=== PATIENT | male | born 1955 | race Caucasian/White ===

== ENCOUNTER 2018-01-31 08:04 | Observation (INO) | payer OTHER ==
[~2018-01-31] VITALS: Ht 180.3 cm; Wt 98.0 kg
[2018-01-31] VITALS (8 sets, daily range): BP systolic 107–179; BP diastolic 64–101; PULSE 58–68; RESP 17–18; TEMP 97.7–98.4; O2SAT 94–99
[~2018-01-31 08:04] MED LIST: OMEP20TA39 PO; PROZ20CA11 PO; SIMV20 PO
[2018-01-31] MEDS ORDERED: ASPIRIN 81 MG CHEW TAB PO ONE (08:30)
[2018-01-31] MEDS ORDERED: LIDOCAINE VISCOUS 2% SOLN 15 ML UDC PO ONE (08:30)
[2018-01-31] MEDS ORDERED: SODIUM CHLORIDE 0.9% FLUSH 10 ML FLUSH IVF PRN (08:30)
[2018-01-31] MEDS ORDERED: ALUMINUM/MAGNESIUM/SIMETH 30 ML CUP PO ONE (08:30)
[2018-01-31] MEDS ORDERED: FAMOTIDINE 20 MG/2 ML VIAL IV PUSH ONE (08:30)
[2018-01-31 08:49] LABS: AUTOMATED NEUTROPHIL # 3.4 TH/MM3 (1.8-7.7); BASOPHIL % 0.7 % (0.0-2.0); EOSINOPHIL # 0.1 TH/MM3 (0-0.4); EOSINOPHIL % 1.8 % (0.0-4.0); HEMATOCRIT 40.1 % (39.0-51.0); HEMOGLOBIN 13.9 GM/DL (13.0-17.0); LYMPH % 29.5 % (9.0-44.0); LYMPHOCYTE # 1.8 TH/MM3 (1.0-4.8); MEAN CELL VOLUME 86.5 FL (80.0-100.0); MEAN CORPUSCULAR HEMOGLOBIN 29.9 PG (27.0-34.0); MEAN CORPUSCULAR HGB CONC 34.6 % (32.0-36.0); MEAN PLATELET VOLUME 7.5 FL (7.0-11.0); MONO % 11.8 % (0.0-8.0); MONOCYTE # 0.7 TH/MM3 (0-0.9); NEUT % 56.2 % (16.0-70.0); PLATELET COUNT 263 TH/MM3 (150-450); RED BLOOD COUNT 4.64 MIL/MM3 (4.50-5.90); RED CELL DISTRIBUTION WIDTH 13.7 % (11.6-17.2)
--- NOTE | 2018-01-31 08:56 | RADRPT ---
EXAM DATE/TIME: 01/31/2018 08:42 [place] COMPARISON: CHEST SINGLE AP, August 01, 2011, 13:42. INDICATIONS : Chest pain. MEDICAL HISTORY : None. SURGICAL HISTORY : None. ENCOUNTER: Initial ACUITY: 1 day PAIN SCORE: 4/10 LOCATION: middle chest FINDINGS: A single view of the chest demonstrates the lungs to be symmetrically aerated without evidence of inf iltrate or effusion. Stable calcified granuloma in the right lower lobe. The cardiomediastinal contou rs are unremarkable. Osseous structures are intact. CONCLUSION: 1. No acute cardiopulmonary disease. Brennan Hightower MD on January 31, 2018 at 8:52 Board Certified Radiologist. This report was verified electronically.
[2018-01-31 09:03] LABS: ALT (GPT) 32 U/L (12-78)
[2018-01-31 09:04] LABS: INTERNATIONAL NORMALIZED RATIO 1.1 RATIO; PROTHROMBIN TIME - PATIENT 10.7 SEC (9.8-11.6)
[2018-01-31 09:39] LABS: ALBUMIN 3.8 GM/DL (3.4-5.0); ALKALINE PHOSPHATASE 61 U/L (45-117); AST (GOT) 31 U/L (15-37); BICARBONATE 23.5 MEQ/L (21.0-32.0); BLOOD UREA NITROGEN 20 MG/DL (7-18); CALCIUM 8.9 MG/DL (8.5-10.1); CHLORIDE 106 MEQ/L (98-107); CREATININE 1.08 MG/DL (0.60-1.30); GLOMERULAR FILTRATION RATE 70 ML/MIN (>89); GLUCOSE,RANDOM 113 MG/DL (74-106); SODIUM (NA) 138 MEQ/L (136-145); TOTAL BILIRUBIN ADULT 0.6 MG/DL (0.2-1.0); TOTAL PROTEIN 7.5 GM/DL (6.4-8.2); TROPONIN I LESS THAN 0.02 NG/ML (0.02-0.05)
--- NOTE | 2018-01-31 11:07 | PD ---
HPI Chief Complaint: Chest Pain Time Seen by Provider: 08:23 Travel History International Travel<30 days: No Contact w/Intl Traveler<30days: No Traveled to known affect area: No History of Present Illness HPI Patient is a 62-year-old male who comes in complaining of chest pain. He says he was at the gym yesterday when he felt some pain to his neck that radiated down into his chest. He says he has some esophageal issues, and he is not sure if this is related to that or his heart. He does have a strong family history of heart disease, with both his grandfather and father dying suddenly of heart attacks. He says he feels a pressure sensation to the middle of his chest. He says it did go away last night after coming home from the gym, and started again this morning on the way to work. He does take omeprazole for what he says are esophageal ulcerations. He has been compliant with this. He does have "very high cholesterol." His last stress test was 6 years ago. He is currently still having the symptoms. Severity is mild to moderate. PFSH Past Medical History Arthritis: No Asthma: No Autoimmune Disease: No Blood Disorders: No Anxiety: Yes Depression: Yes Heart Rhythm Problems: No Cancer: No Cardiac Catheterization: Yes Cardiovascular Problems: Yes (PALPITATIONS) High Cholesterol: Yes Chemotherapy: No Chest Pain: Yes Congestive Heart Failure: No COPD: No Cerebrovascular Accident: No Diabetes: No Diminished Hearing: No Endocrine: No Gastrointestinal Disorders: Yes GERD: No Genitourinary: Yes Headaches: No Hiatal Hernia: No Hypertension: Yes Immune Disorder: No Implanted Vascular Access Dvce: Yes Kidney Stones: No Musculoskeletal: Yes (CHRONIC BACK PAIN) Neurologic: Yes Psychiatric: No Reproductive: No Respiratory: No Integumentary: Yes (HX OF MRSA) Migraines: No Myocardial Infarction: No Radiation Therapy: No Renal Failure: No Seizures: Yes Sickle Cell Disease: No Sleep Apnea: No Thyroid Disease: No Ulcer: Yes Tetanus Vaccination: > 5 Years Influenza Vaccination: No ?: Not Past Surgical History Abdominal Surgery: No AICD: No Arteriovenous Shunt: No Body Medical Devices: PLATES IN FACE Cardiac Surgery: No Ear Surgery: No Endocrine Surgery: No Eye Surgery: No Genitourinary Surgery: No Gynecologic Surgery: No Insulin Pump: No Joint Replacement: No Neurologic Surgery: No Oral Surgery: Yes (FACIAL FX REPAIR) Pacemaker: No Thoracic Surgery: No Tonsillectomy: Yes Other Surgery: Yes (FACIAL RECONSTRUCTION) Family History Family Myocardial Infarction: Yes (FATHER AND GRANDFATHER ) Social History Alcohol Use: No Tobacco Use: No Substance Use: Yes (HX COCAINE AND BENZODIAZAPINES, BARBITUATES, THC) Allergies-Medications (Allergen,Severity, Reaction): Coded Allergies: sulfamethoxazole (Unverified Allergy, Severe, SORES/BLISTERS, 01/31/18) trimethoprim (Unverified Allergy, Severe, SORES/BLISTERS, 01/31/18) Reported Meds & Prescriptions Reported Meds & Active Scripts Active Reported Hm Omeprazole (Omeprazole) 20 Mg Tab 20 Mg PO DAILY Zocor (Simvastatin) 20 Mg Tab 20 Mg PO HS Prozac (Fluoxetine HCl) 20 Mg Cap 20 Mg PO DAILY Review of Systems Except as stated in HPI: all other systems reviewed are Neg General / Constitutional: No: Fever, Chills HENT: No: Headaches, Lightheadedness Cardiovascular: Positive: Chest Pain or Discomfort Respiratory: No: Shortness of Breath Gastrointestinal: No: Nausea, Vomiting Musculoskeletal: No: Myalgias Skin: No Rash Neurologic: No: Weakness, Dizziness Physical Exam Narrative GENERAL: Awake and alert, in no acute distress. SKIN: Focused skin assessment warm/dry. HEAD: Atraumatic. Normocephalic. EYES: Pupils equal and round. No scleral icterus. ENT: Mucous membranes pink and moist. NECK: Trachea midline. No JVD. CARDIOVASCULAR: Regular rate and rhythm. No murmur appreciated. RESPIRATORY: No accessory muscle use. Clear to auscultation. Breath sounds equal bilaterally. GASTROINTESTINAL: Abdomen soft, non-tender, nondistended. MUSCULOSKELETAL: No obvious deformities. No clubbing. No cyanosis. No edema. NEUROLOGICAL: Awake and alert. No obvious cranial nerve deficits. Motor grossly within normal limits. Normal speech. PSYCHIATRIC: Appropriate mood and affect; insight and judgment normal. Data Data Last Documented VS Vital Signs Date Time Temp Pulse Resp B/P (MAP) Pulse Ox O2 Delivery O2 Flow Rate FiO2 01/31/18 08:34 98 Room Air 01/31/18 08:25 67 18 01/31/18 08:12 98.4 Orders Orders Electrocardiogram (01/31/18 08:29) Ckmb (Isoenzyme) Profile (01/31/18 08:29) Complete Blood Count With Diff (01/31/18 08:29) Comprehensive Metabolic Panel (01/31/18 08:29) Prothrombin Time / Inr (Pt) (01/31/18 08:29) Act Partial Throm Time (Ptt) (01/31/18 08:29) Troponin I (01/31/18 08:29) Lipase (01/31/18 08:29) Chest, Single Ap (01/31/18 08:29) Ecg Monitoring (01/31/18 08:29) Bilateral Bp Monitoring (01/31/18 08:29) Iv Access Insert/Monitor (01/31/18 08:29) Oximetry (01/31/18 08:29) Aspirin Chew (Aspirin Chew) (01/31/18 08:30) Sodium Chloride 0.9% Flush (Ns Flush) (01/31/18 08:30) Famotidine Inj (Pepcid Inj) (01/31/18 08:30) Al-Mag Hy-Si 40-40-4 Mg/Ml Liq (Mag-Al P (01/31/18 08:30) Lidocaine 2% Viscous (Xylocaine 2% Visco (01/31/18 08:30) CKMB (01/31/18 08:35) CKMB% (01/31/18 08:35) Admit Order (Ed Use Only) (01/31/18 ) Labs Laboratory Tests Test 01/31/18 08:35 White Blood Count 6.0 TH/MM3 Red Blood Count 4.64 MIL/MM3 Hemoglobin 13.9 GM/DL Hematocrit 40.1 % Mean Corpuscular Volume 86.5 FL Mean Corpuscular Hemoglobin 29.9 PG Mean Corpuscular Hemoglobin Concent 34.6 % Red Cell Distribution Width 13.7 % Platelet Count 263 TH/MM3 Mean Platelet Volume 7.5 FL Neutrophils (%) (Auto) 56.2 % Lymphocytes (%) (Auto) 29.5 % Monocytes (%) (Auto) 11.8 % Eosinophils (%) (Auto) 1.8 % Basophils (%) (Auto) 0.7 % Neutrophils # (Auto) 3.4 TH/MM3 Lymphocytes # (Auto) 1.8 TH/MM3 Monocytes # (Auto) 0.7 TH/MM3 Eosinophils # (Auto) 0.1 TH/MM3 Basophils # (Auto) 0.0 TH/MM3 CBC Comment DIFF FINAL Differential Comment Prothrombin Time 10.7 SEC Prothromb Time International Ratio 1.1 RATIO Activated Partial Thromboplast Time 26.6 SEC Blood Urea Nitrogen 20 MG/DL Creatinine 1.08 MG/DL Random Glucose 113 MG/DL Total Protein 7.5 GM/DL Albumin 3.8 GM/DL Calcium Level 8.9 MG/DL Alkaline Phosphatase 61 U/L Aspartate Amino Transf (AST/SGOT) 31 U/L Alanine Aminotransferase (ALT/SGPT) 32 U/L Total Bilirubin 0.6 MG/DL Sodium Level 138 MEQ/L Potassium Level 4.5 MEQ/L Chloride Level 106 MEQ/L Carbon Dioxide Level 23.5 MEQ/L Anion Gap 9 MEQ/L Estimat Glomerular Filtration Rate 70 ML/MIN Total Creatine Kinase 319 U/L Creatine Kinase MB 1.6 NG/ML Creatine Kinase MB % 0.5 % Troponin I LESS THAN 0.02 NG/ML Lipase 162 U/L MDM Medical Decision Making Medical Screen Exam Complete: Yes Emergency Medical Condition: Yes Medical Record Reviewed: Yes Interpretation(s) ECG shows NSR at 63, no ST elevation or depression. Differential Diagnosis ACS vs NSTEMI vs STEMI vs GERD Narrative Course Patient is a 62-year-old male comes planing of chest pain. Exam shows no acute abnormalities, no abdominal tenderness. IV established, labs sent. Patient given aspirin and GI cocktail. He says he continues to have the symptoms. Labs show no acute abnormalities, troponin is negative. Chest x-ray shows no acute abnormalities. Last 24 hours Impressions Chest X-Ray 01/31/18 0829 Signed Impressions: Service Date/Time: Wednesday, January 31, 2018 08:42 - CONCLUSION: 1. No acute cardiopulmonary disease. Brennan Hightower MD Patient will be placed in chest pain center for ACS rule out. Diagnosis Primary Impression: Chest pain Qualified Codes: R07.9 - Chest pain, unspecified Admitting Information Admitting Physician Requests: Judy Soto MD Jan 31, 2018 11:07
[2018-01-31] MEDS ORDERED: NITROGLYCERIN 0.4 MG SL 25 TABS/BTL SL PRN (12:00)
[2018-01-31] MEDS ORDERED: ONDANSETRON HCL 4 MG/2 ML VIAL IV PUSH PRN (12:00)
[2018-01-31] MEDS ORDERED: ACETAMINOPHEN 500 MG CPLT PO PRN (12:00)
[2018-01-31 12:55] LABS: TROPONIN I LESS THAN 0.02 NG/ML (0.02-0.05)
--- NOTE | 2018-01-31 13:08 | HHI.HP ---
HPI Primary Care Physician [facility] Chief Complaint Chest pain History of Present Illness 62-year-old male with history of hypertension, GERD, and hyperlipidemia presents to emergency room for further evaluation chest pain. Describes 2 different chest discomforts. First chest discomfort onset one week ago, quick onset. Location generalized chest area. Characterized as a "cramp." No radiation of pain. No associated symptoms of nausea, vomiting, dyspnea, or diaphoresis. Duration 10-15 minutes. No known precipitating factors, described as nonexertional, playing golf at the time. No relieving factors. Second chest discomfort onset yesterday while at gym. Location upper midchest and throat. Characterized as burning and tightness. No radiation. Severity 3/10. Duration 1 hour. No associated symptoms of nausea, vomiting, dyspnea, or diaphoresis. No no precipitating factors. Relieving factors eating. Upon awakening this morning states "I felt fine." While watching television, developed same discomfort as yesterday, however this morning "felt more like acid." Duration 1.5 hours. No known precipitating factors. Relieving factors GI cocktail given in ER. Currently is pain free. Endorses long standing GERD, past endoscopy, and even a cardiac cath due to similar symptoms approximately 7-8 years ago. Review of Systems General: No fatigue,weakness, fever, chills, recent illness, or change in appetite. Has been in his general state of health. HEENT: No BAPTIST[place], no vision changes, no nasal congestion or drainage, no dysphasia, History of GERD CV: As stated above. Currently chest pain free. RESP: No SOB, cough, wheeze, or recent URI. GI: No nausea, vomiting, bowel changes. No unintentional weight gain or weight loss : No dysuria, urgency, frequency EXT: Occasional bilateral lower leg edema, no paraesthesias MS: No discomfort, injury, trauma, or change in ROM NEURO: No change in memory, difficulty with balance, LOC, motor/sensory deficits PSYCH: No anxiety. History of depression. SKIN: No rashes, no concerning lesions Past Family Social History Allergies: Coded Allergies: sulfamethoxazole (Unverified Allergy, Severe, SORES/BLISTERS, 01/31/18) trimethoprim (Unverified Allergy, Severe, SORES/BLISTERS, 01/31/18) Past Medical History Hyperlipidemia, hypertension, depression, seizure disorder Past Surgical History Facial fracture with reconstruction (2005) Reported Medications Reported Meds & Active Scripts Active Omeprazole 20 mg p.o. daily Simvastatin 20 mg p.o. at bedtime Fluoxetine 20 mg p.o. daily Lisinopril (dose unknown) daily Multivitamin p.o. daily Active Ordered Medications Current Medications Medications (Trade) Dose Ordered Sig/Abelardo Route Start Time Stop Time Status Last Admin (NS Flush) 2 ml UNSCH PRN IVF 01/31/18 08:30 01/31/18 08:43 (NS Flush) 2 ml BID IV FLUSH 01/31/18 21:00 (Tylenol) 500 mg Q4H PRN PO 01/31/18 12:00 (Zofran Inj) 4 mg Q6H PRN IV PUSH 01/31/18 12:00 (Nitrostat Sl) 0.4 mg Q5M PRN SL 01/31/18 12:00 (Aspirin) 325 mg DAILY PO 02/01/18 09:00 Family History Father age 54 [place]. Paternal grandfather age 58 [place]. Social History Known hypertension and hyperlipidemia. No known coronary artery disease or diabetes. Former smoker quitting 8 years ago. [id number] history. Endorses past cocaine abuse, clean from substances for 7 years. . 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 Past cardiac testing 02/17/11 Lexiscan-Redistribution anteroseptal region as well as the lateral wall. Moderate gut activity could mask redistribution in the interior wall. Estimated EF 37%. 02/18/11 Cardiac catheterization (Dr. Short) Coronary arteriography-The left coronary artery mildly irregular. The anterior descending and co-dominant circumflex coronary arteries along with the co-dominant right coronary artery have at most minimal irregularities. Conclusions 1. Low normal ventricular function wit normal coronary arteries. 01/27/07 Lexiscan-Findings: At stress, the most significant tracer delivery is to the septum and lateral wall. There is very slightly diminished inferior and inferoapical tracer delivery. It is unclear if this may potentially reflect some apical myocardial thinning. In any case, the perfusion pattern is stable on resting acquisitions with nothing to suggest ischemia. The wall motion appears intact. The left ventricular ejection fraction is calculated at 52%. Impression: questionable small inferior and apical perfusion defect wit no evidence of associated redistribution. Physical Exam Vital Signs Vital Signs Date Time Temp Pulse Resp B/P (MAP) Pulse Ox O2 Delivery O2 Flow Rate FiO2 01/31/18 08:34 98 Room Air 01/31/18 08:25 67 18 149/75 (99) 98 Room Air 01/31/18 08:25 68 18 98 Room Air 01/31/18 08:12 98.4 66 17 179/101 (127) 99 Physical Exam GENERAL: Alert WN, WD, NAD, pleasant, male HEAD: NC, AT EYES: Sclera clear, conjunctiva without injection, pupils equal and round ENT: Mucous membranes pink and moist NECK: Supple, no masses, trachea midline CV: RRR, without murmur, rub, gallop, no JVD, S1-S2 no S3-S4. RESP: Clear lungs throughout bilateral, no crackles, wheeze, rhonchi, symmetrical chest rise, nonlabored, able to speak in full sentences ABD: Soft, NT, ND, no masses, positive bowel tones EXT: Pulses +2x4, no dependent edema MS: Normal tone x4 extremities, nontender, no obvious deformities, full range of motion NEURO: CN II through CN XII grossly intact, motor strength 5/5 PSYCH: A+O -3, pleasant affect, appropriate speech, mood, insight and judgment SKIN: Normal turgor, normal texture, no lesions, no rashes, brisk cap refill, even hair distribution Laboratory Laboratory Tests Test 01/31/18 08:35 01/31/18 11:35 White Blood Count 6.0 Red Blood Count 4.64 Hemoglobin 13.9 Hematocrit 40.1 Mean Corpuscular Volume 86.5 Mean Corpuscular Hemoglobin 29.9 Mean Corpuscular Hemoglobin Concent 34.6 Red Cell Distribution Width 13.7 Platelet Count 263 Mean Platelet Volume 7.5 Neutrophils (%) (Auto) 56.2 Lymphocytes (%) (Auto) 29.5 Monocytes (%) (Auto) 11.8 Eosinophils (%) (Auto) 1.8 Basophils (%) (Auto) 0.7 Neutrophils # (Auto) 3.4 Lymphocytes # (Auto) 1.8 Monocytes # (Auto) 0.7 Eosinophils # (Auto) 0.1 Basophils # (Auto) 0.0 CBC Comment DIFF FINAL Differential Comment Prothrombin Time 10.7 Prothromb Time International Ratio 1.1 Activated Partial Thromboplast Time 26.6 Blood Urea Nitrogen 20 Creatinine 1.08 Random Glucose 113 Total Protein 7.5 Albumin 3.8 Calcium Level 8.9 Alkaline Phosphatase 61 Aspartate Amino Transf (AST/SGOT) 31 Alanine Aminotransferase (ALT/SGPT) 32 Total Bilirubin 0.6 Sodium Level 138 Potassium Level 4.5 Chloride Level 106 Carbon Dioxide Level 23.5 Anion Gap 9 Estimat Glomerular Filtration Rate 70 Total Creatine Kinase 319 299 Creatine Kinase MB 1.6 Creatine Kinase MB % 0.5 Troponin I LESS THAN 0.02 LESS THAN 0.02 Lipase 162 Result Diagram: 01/31/1883401/31/18834 Imaging Last 48 hours Impressions Chest X-Ray 01/31/18828 Signed Impressions: Service Date/Time: Wednesday, January 31, 2018 08:42 - CONCLUSION: 1. No acute cardiopulmonary disease. Brennan Hightower MD Course EKG NSR, normal axis, no st t segment changes Caprini VTE Risk Assessment Caprini VTE Risk Assessment: Mod/High Risk (score >= 2) Caprini Risk Assessment Model Point Value = 1 Point Value = 2 Point Value = 3 Point Value = 5 Age 41-60 Minor surgery BMI > 25 kg/m2 Swollen legs Varicose veins or History of unexplained or recurrent spontaneous Oral contraceptives or hormone replacement Sepsis (< 1 month) Serious lung disease, including pneumonia (< 1 month) Abnormal pulmonary function Acute myocardial infarction Congestive heart failure (< 1 month) History of inflammatory bowel disease Medical patient at bed rest Age 61-74 Arthroscopic surgery Major open surgery (> 45 min) Laparoscopic surgery (> 45 min) Malignancy Confined to bed (> 72 hours) Immobilizing plaster cast Central venous access Age >= 75 History of VTE Family history of VTE Factor V Leiden Prothrombin [id number] Lupus anticoagulant Anticardiolipin antibodies Elevated serum homocysteine Heparin-induced thrombocytopenia Other congenital or acquired thrombophilia Stroke (< 1 month) Elective arthroplasty Hip, pelvis, or leg fracture Acute spinal cord injury (< 1 month) Prophylaxis Regimen Total Risk Factor Score Risk Level Prophylaxis Regimen 0-1 Low Early ambulation 2 Moderate Order ONE of the following: *Sequential Compression Device (SCD) *Heparin 5000 units SQ BID 3-4 Higher Order ONE of the following medications: *Heparin 5000 units SQ TID *Enoxaparin/Lovenox 40 mg SQ daily (WT < 150 kg, CrCl > 30 mL/min) *Enoxaparin/Lovenox 30 mg SQ daily (WT < 150 kg, CrCl > 10-29 mL/min) *Enoxaparin/Lovenox 30 mg SQ BID (WT < 150 kg, CrCl > 30 mL/min) AND/OR *Sequential Compression Device (SCD) 5 or more Highest Order ONE of the following medications: *Heparin 5000 units SQ TID (Preferred with Epidurals) *Enoxaparin/Lovenox 40 mg SQ daily (WT < 150 kg, CrCl > 30 mL/min) *Enoxaparin/Lovenox 30 mg SQ daily (WT < 150 kg, CrCl > 10-29 mL/min) *Enoxaparin/Lovenox 30 mg SQ BID (WT < 150 kg, CrCl > 30 mL/min) AND *Sequential Compression Device (SCD) Assessment and Plan Assessment and Plan #1 Chest pain-admitted to chest pain center. Begin ruling out ACS with 3 sets of EKGs and cardiac enzymes. Will be seen and evaluated by Dr. Nayeli Greco. 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 Patient agreeable to plan of care. #2 History of hypertension-continue lisinopril #3 History of hyperlipidemia-continue simvastatin #4 History of depression-continue Prozac #5 History of GERD-symptoms reportedly subsided quickly after GI cocktail. Continue Omeprazole. Discussed after symptoms ruled for cardiac etiology, he would benefit follow up appointment with his past GI physician. Alida zOuna Jan 31, 2018 13:08
[2018-01-31 15:45] LABS: TROPONIN I LESS THAN 0.02 NG/ML (0.02-0.05)
--- NOTE | 2018-01-31 17:34 | EKG ---
Date Performed: 01/31/2018 Time Performed: 11:54:41 PTAGE: 62 years EKG: SINUS BRADYCARDIA BORDERLINE ECG Since PREVIOUS TRACING , no significant change noted DOCTOR: Nayeli Greco Interpretating Date/Time 01/31/2018 17:32:50
--- NOTE | 2018-01-31 17:35 | EKG ---
Date Performed: 01/31/2018 Time Performed: 08:33:35 PTAGE: 62 years EKG: Sinus rhythm NORMAL ECG Since PREVIOUS TRACING , no significant change noted PREVIOUS TRACIN08/08/2011 07.48 DOCTOR: Nayeli Greco Interpretating Date/Time 01/31/2018 17:33:49
--- NOTE | 2018-01-31 18:52 | HHI.DCPOC ---
Discharge Care Plan Diagnosis: (1) Atypical chest pain (2) GERD (gastroesophageal reflux disease) Goals to Promote Your Health * To prevent worsening of your condition and complications * To maintain your health at the optimal level Directions to Meet Your Goals Take your medications as prescribed Follow your dietary instruction Follow activity as directed Keep your appointments as scheduled Take your immunizations and boosters as scheduled If your symptoms worsen call your PCP, if no PCP go to Urgent Care Center or Emergency Room Smoking is Dangerous to Your Health. Avoid second hand smoke Call the 24-hour hour crisis hotline for domestic abuse at Alida OzunaP Jan 31, 2018 18:52
[2018-01-31] MEDS ORDERED: SODIUM CHLORIDE 0.9% FLUSH 10 ML FLUSH IV FLUSH SCH (21:00)
[2018-02-01] MEDS ORDERED: ASPIRIN 325 MG TAB PO SCH (09:00)
--- NOTE | 2018-02-01 12:53 | TR ---
Date Performed: 01/31/2018 Time Performed: 18:19:55 DOCTOR: Brant Moya DRUG LIST: CLINICAL HISTORY: REASON FOR TEST: Chest pain REASON FOR ENDING: OBSERVATION: CONCLUSION: Chas protocol completed. Stopped sec to exceeding target heart rate and leg fatigue . Arifact throughout exam, despite multiple attemtps to correct. Maximum DC=828 Target HR Achieved=93 .0% Maximum JT=821/88 Total Exercise Time=7:39. No reprod chest pain. At peak exercise, no st t segme nt changes to sugg ischemia, nondiagnositic. Good exercise tolerance. Normal bp response. Recovery q uick and unremarkable. COMMENTS: Patient exercised using the Chas protocol. No electrocardiographic changes were seen to suggest ischemia. Hemodynamic response to exercise was normal. No significant arrhythmia was prese nt.
--- NOTE | 2018-02-01 13:13 | EKG ---
Date Performed: 01/31/2018 Time Performed: 14:32:03 PTAGE: 62 years EKG: Sinus rhythm NORMAL ECG PREVIOUS TRACING : 01/31/2018 11.54 DOCTOR: Cal Bell Interpretating Date/Time 02/01/2018 13:13:17
== END 2018-01-31 19:10 | disposition home or self-care (01) ==
LOC: NEPE 08:04 → NEDA 11:08 → NEPFCDU 15:26
PROVIDERS: ADMIT Internal Medicine Interventional Cardiology; ATTEND Internal Medicine Interventional Cardiology
DX: R07.89 Other chest pain (principal); K21.9 Gastro-esophageal reflux disease without esophagitis; K22.10 Ulcer of esophagus without bleeding; Z82.49 Family history of ischemic heart disease and other diseases of the circulatory system; E78.00 Pure hypercholesterolemia, unspecified; R00.2 Palpitations; I10 Essential (primary) hypertension; M54.9 Dorsalgia, unspecified; G89.29 Other chronic pain; Z86.14 Personal history of Methicillin resistant Staphylococcus aureus infection; R56.9 Unspecified convulsions; E78.5 Hyperlipidemia, unspecified
CPT/HCPCS: 71045; 80053; 82550; 82552; 83690; 84484; 85025; 85610; 85730; 93005; 93017; 96374; 99285; G0378